=== PATIENT | male | born 1980 | race Caucasian/White ===

== ENCOUNTER 2023-06-09 00:13 | Emergency (ER) | payer MEDICAID ==
[~2023-06-09] VITALS: Ht 172.7 cm; Wt 87.0 kg
[2023-06-09 00:16] VITALS: BP 145/97; PULSE 90; RESP 18; O2SAT 97
[2023-06-09 01:30] VITALS: TEMP 98
[2023-06-09] MEDS: ACETAMINOPHEN 325MG TABLET PO ONE (01:30)
[2023-06-09] MEDS ORDERED: ACET-2708 MT (02:37)
[2023-06-09] MEDS ORDERED: LIDO700A15 TP (02:37)
== END 2023-06-09 03:08 | disposition home or self-care (01) ==
LOC: ER 00:35
DX: S09.90XA Unspecified injury of head, initial encounter (principal); S20.211A Contusion of right front wall of thorax, initial encounter; Y08.89XA Assault by other specified means, initial encounter; Y93.89 Activity, other specified; Y92.89 Other specified places as the place of occurrence of the external cause; Y99.8 Other external cause status
CPT/HCPCS: 71101; 99284